=== PATIENT | female | born 1950 | race African-American/Black ===

== ENCOUNTER 2020-01-14 06:14 | Emergency (ER) | payer OTHER ==
[2020-01-14 07:25] LABS: ABSOLUTE BASOPHILS # (AUTO) 0.1 10^3/uL (0.0-0.2); ABSOLUTE EOSINOPHILS # (AUTO) 0.2 10^3/uL (0.0-0.6); ABSOLUTE LYMPHOCYTES (AUTO) 1.7 10^3/uL (0.5-4.7); ABSOLUTE MONOCYTES (AUTO) 0.3 10^3/uL (0.1-1.4); ABSOLUTE NEUT (AUTO) 3.7 10^3/uL (1.7-8.2); BASOPHILS % (AUTO) 1.2 % (0-2); EOSINOPHILS % (AUTO) 2.7 % (0-6); HEMATOCRIT 42.6 % (36.0-47.0); HEMOGLOBIN 14.2 g/dL (12.0-15.5); LYMPHOCYTES % (AUTO) 28.9 % (13-45); MEAN CORPUSCULAR HEMOGLOBIN 30.8 pg (27.0-33.4); MEAN CORPUSCULAR HGB CONC 33.2 g/dL (32.0-36.0); MEAN CORPUSCULAR VOLUME 93 fl (80-97); MONOCYTES % (AUTO) 4.6 % (3-13); PLATELET COUNT 278 10^3/uL (150-450); RED CELL DISTRIBUTION WIDTH 14.1 % (11.5-14.0); SEGMENTED NEUTROPHILS % (AUTO) 62.6 % (42-78); TOTAL CELLS COUNTED % (AUTO) 100 %; WHITE BLOOD COUNT 5.9 10^3/uL (4.0-10.5)
[2020-01-14 07:30] LABS: INTERNATIONAL RATION (INR) 0.87; PROTHROMBIN TIME 12.1 SEC (11.4-15.4)
[2020-01-14 07:40] LABS: ALBUMIN 4.4 g/dL (3.5-5.0); ALKALINE PHOSPHATASE 82 U/L (38-126); ANION GAP 9 (5-19); ASPARTATE AMINO TRANSFERASE 28 U/L (14-36); BILIRUBIN,DIRECT 0.2 mg/dL (0.0-0.4); BILIRUBIN,TOTAL 0.4 mg/dL (0.2-1.3); BLOOD UREA NITROGEN 15 mg/dL (7-20); CALCIUM 10.1 mg/dL (8.4-10.2); CARBON DIOXIDE 26 mmol/L (22-30); CHLORIDE 107 mmol/L (98-107); GLUCOSE 101 mg/dL (75-110); POTASSIUM 3.9 mmol/L (3.6-5.0); TOTAL PROTEIN 7.7 g/dL (6.3-8.2)
--- NOTE | 2020-01-14 11:09 | ER Document Report ---
ED ENT - General Chief Complaint: Nose Bleed Stated Complaint: NOSE BLEED, WEAKNESS, SHAKINESS Time Seen by Provider: 01/14/20 10:52 Primary Care Provider: SELWYN FLOWERS FNP-C [Primary Care Provider] - Follow up as needed UBALDO LEBRON MD [ACTIVE STAFF] - Follow up as needed Mode of Arrival: Ambulatory Information source: Patient Notes: 01/14/20 06:40 - ED Nursing Note by SIMRAN ALLEN Num: [id number] : 1950 Patient Age: [age] Y/O WITH NO MEDICAL HX, PRESENTS REPORTING THAT ABOUT 0530, SHE AWOKE TO A NOSE BLEED. PT REPORTED THAT IT BLEED HEAVILY FOR 5-10, THEN SLOWED. CURRENTLY STOPPED. PT NOW FEELS WEAK. DENIES THINNING AGENTS. B/P 158/98. BREATHING EASILY. 02 SAT 99% MY NOTES 69 year old female with recent history of epistaxis. Patient reports she awoke at 530 this morning with right-sided nosebleed that was quite heavy. She had had a nosebleed since she was a little girl when she lived in [place]. Patient moved here 50 years ago and has 5 children in [facility] and here all adult children from 39 to 49 years of age. She texted them because after 30 minutes of nosebleed and her bathroom and kitchen full of blood she went to the daily news holding pressure to her right nose with a cough. She spit out a large clump of blood at the daily news grassy area. She wanted to text her children in case some of them came to the house and saw a lot of blood in the house. She came to the ER around 615 and was triage. Her nosebleed stopped upon arrival. She did reports she took a aspirin around 5 hours prior to the nosebleed for mild arthralgias. Patient denies any trauma abuse cocaine use. Her labs are all perfect including a 14 hemoglobin. Patient in room is a good historian and reports she occasionally has rhinorrhea because of sinus problems after moving here 50 years ago. TRAVEL OUTSIDE OF THE [place] IN LAST 30 DAYS: No - HPI Patient complains to provider of: Nose problem Onset: This morning Onset/Duration: Sudden, Better Quality of pain: Achy Severity: Mild Pain Level: 1 - Related Data Allergies/Adverse Reactions: No Known Allergies Allergy (Unverified 03/21/14 14:14) Past Medical History - General Information source: Patient - Social History Smoking Status: Former Smoker Cigarette use (# per day): No Chew tobacco use (# tins/day): No Smoking Education Provided: No Frequency of alcohol use: None Drug Abuse: None Lives with: Family Family History: Reviewed & Not Pertinent Review of Systems - Review of Systems Constitutional: No symptoms reported EENT: See HPI, Nose congestion, Other - epistaxis Cardiovascular: No symptoms reported Respiratory: No symptoms reported Gastrointestinal: No symptoms reported Genitourinary: No symptoms reported Female Genitourinary: No symptoms reported Musculoskeletal: No symptoms reported Skin: No symptoms reported Hematologic/Lymphatic: No symptoms reported Neurological/Psychological: No symptoms reported Physical Exam - Vital signs Vitals: Temp Pulse Resp BP Pulse Ox 98.6 F 76 16 152/98 H 100 01/14/20 06:30 01/14/20 06:30 01/14/20 06:30 01/14/20 06:30 01/14/20 06:30 - General General appearance: Appears well, Alert - HEENT Head: Normocephalic, Atraumatic Eyes: Normal Conjunctiva: Normal Extraocular movements intact: Yes Eyelashes: Normal Pupils: PERRL Ears: Normal External canal: Normal Nasal: Epistaxis - right nostril dried blood; left serous Mucous membranes: Normal Pharynx: Normal Neck: Normal - Respiratory Respiratory status: No respiratory distress Chest status: Nontender Breath sounds: Normal Chest palpation: Normal - Cardiovascular Rhythm: Regular Heart sounds: Normal auscultation Murmur: No - Abdominal Inspection: Normal Distension: No distension Bowel sounds: Normal Tenderness: Nontender Organomegaly: No organomegaly - Rectal Hemorrhoids: Other - deferred - Genitourinary Bimanuel exam: Other - deferred - Back Back: Normal - Extremities General upper extremity: Normal inspection General lower extremity: Normal inspection - Neurological Neuro grossly intact: Yes Cognition: Normal Orientation: AAOx4 [place] Coma Scale Eye Opening: Spontaneous [place] Coma Scale Verbal: Oriented [place] Coma Scale Motor: Obeys Commands [place] Coma Scale Total: 15 Speech: Normal Motor strength normal: LUE, RUE, LLE, RLE Sensory: Normal - Psychological Associated symptoms: Normal affect - Skin Skin Temperature: Warm Skin Moisture: Dry Course - Vital Signs Vital signs: Temp Pulse Resp BP Pulse Ox 98.7 F 63 18 137/87 H 100 01/14/20 11:00 01/14/20 11:00 01/14/20 11:00 01/14/20 11:00 01/14/20 11:00 - Laboratory Result Diagrams: 01/14/20 07:00 01/14/20 07:00 Laboratory results interpreted by me: 01/14/20 07:00 RDW 14.1 H - Diagnostic Test Radiology reviewed: Reports reviewed - CT scan of facial bones were within normal limits except for sialolith of submandibular on the right. Critical Care Note - Critical Care Note Comments: I spoke with OR nurse Anna b/o Joel was in surgery; he agrees to see in office call for appointment Discharge - Discharge Clinical Impression: Epistaxis not due to trauma Condition: Good Disposition: HOME, SELF-CARE Additional Instructions: Follow-up with ENT Dr. Ubaldo Lebron call his office for appointment. Apply Bactroban to your nostrils gently at nighttime for 1 week. Try to avoid aspirin for 1 week at least. The aspirin will affect your platelets for 7 days. Please be aware this. Also return to ER if symptoms return or worsen. Try to apply pressure to right nostril and hold head forwards. Your blood count today on all labs were within normal limits actually you have a hemoglobin of 14 Prescriptions: Amoxicillin/Potassium Clav [Augmentin 875-125 Tablet] 1 tab PO BID #20 tab Mupirocin [Bactroban 2% Ointment 22 gm] 1 applic NASL HSP PRN #1 tube PRN Reason: Referrals: SELWYN FLOWERS, LASER ENGINEER-C [Primary Care Provider] - Follow up as needed UBALDO LEBRON MD [ACTIVE STAFF] - Follow up as needed
--- NOTE | 2020-01-14 12:12 | RADIOLOGY REPORT (SQ) ---
EXAM DESCRIPTION: CT FACIAL AREA WITHOUT IMAGES COMPLETED DATE/TIME: 01/14/2020 11:24 am REASON FOR STUDY: epistaxis r COMPARISON: None. TECHNIQUE: Noncontrasted images through the facial bones and orbits windowed for bone and soft tissu e. Additional coronal and sagittal reconstructed images reviewed. All images stored on PACS. All CT scanners at this facility use dose modulation, iterative reconstruction, and/or weight based d osing when appropriate to reduce radiation dose to as low as reasonably achievable (ALARA). [facility]: Dose Right [facility]: CareDose [facility]: Dose Right [facility]: Teradose 4D [facility]: Fundation RADIATION DOSE: CT Rad equipment meets quality standard of care and radiation dose reduction techniq ues were employed. CTDIvol: 30.4 mGy. DLP: 619 mGy-cm. mGy. LIMITATIONS: None. FINDINGS: FACIAL BONES: No fracture or bone lesion. ORBITS: Intact. No fracture. Symmetric intact globes and retroorbital soft tissues. PARANASAL SINUSES: Clear. No significant mucosal thickening, mass or fluid. No nasal polyps. Maxill edil sinus outlets are patent. SOFT TISSUES: No mass or edema. INFERIOR BRAIN: Limited view. No acute findings. OTHER: Incidental note is made of a right submandibular duct sialolith, and expanded sella demonstrat ing Hounsfield units consistent with CSF (no evidence of mass) and ankylosis of the cervical spine. IMPRESSION: No acute findings. Incidental findings include right submandibular duct sialolith, expa nded sella without evidence of sellar mass, and ankylosis of the cervical spine. TECHNICAL DOCUMENTATION: JOB ID: [id number] Quality ID # [id number]: Final reports with documentation of one or more dose reduction techniques (e.g., Au tomated exposure control, adjustment of the mA and/or kV according to patient size, use of iterative reconstruction technique) 2010 [employer]- All Rights Reserved Reading location - IP/workstation name: [email or web address]
[2020-01-14 12:39] VITALS: BP 138/91
[2020-01-14 13:14] LABS: APPEARANCE,URINE CLEAR; BILIRUBIN,URINE NEGATIVE (NEGATIVE); COLOR,URINE YELLOW; GLUCOSE, URINE NEGATIVE (NEGATIVE); KETONES,URINE NEGATIVE (NEGATIVE); PROTEIN,URINE 100 mg/dL (NEGATIVE); URINE SPECIFIC GRAVITY 1.018; UROBILINOGEN,URINE NEGATIVE mg/dL (<2.0)
== END 2020-01-14 12:43 | disposition home or self-care (01) ==
LOC: ER 06:14
DX: R04.0 Epistaxis (principal); R09.81 Nasal congestion; K11.5 Sialolithiasis; M43.22 Fusion of spine, cervical region; Z87.891 Personal history of nicotine dependence
CPT/HCPCS: 36415; 70486; 80053; 81001; 85025; 85610; 99284

== ENCOUNTER 2020-01-15 06:17 | Emergency (ER) | payer MEDICARE, OTHER ==
[2020-01-15] MEDS ORDERED: NORMAL SALINE 250 ML IV ONE (07:30)
[2020-01-15] MEDS ORDERED: CEFTRIAXONE INJ 1000 MG VIAL IV ONE (07:31)
[2020-01-15] MEDS ORDERED: METHYLPREDNISOLONE INJ 125 MG/2 ML SDV IV ONE (07:32)
[2020-01-15] MEDS ORDERED: CEFTRIAXONE 1 GM/D5W RTU 1 GM/50 ML RTUPB IV ONE (07:36)
[2020-01-15 08:16] LABS: ABSOLUTE EOSINOPHILS # (AUTO) 0.1 10^3/uL (0.0-0.6); ABSOLUTE LYMPHOCYTES (AUTO) 1.1 10^3/uL (0.5-4.7); ABSOLUTE MONOCYTES (AUTO) 0.2 10^3/uL (0.1-1.4); ABSOLUTE NEUT (AUTO) 3.2 10^3/uL (1.7-8.2); BASOPHILS % (AUTO) 0.9 % (0-2); HEMATOCRIT 39.8 % (36.0-47.0); HEMOGLOBIN 13.5 g/dL (12.0-15.5); LYMPHOCYTES % (AUTO) 23.6 % (13-45); MEAN CORPUSCULAR HEMOGLOBIN 31.3 pg (27.0-33.4); MEAN CORPUSCULAR VOLUME 92 fl (80-97); MONOCYTES % (AUTO) 5.3 % (3-13); PLATELET COUNT 248 10^3/uL (150-450); RED BLOOD COUNT 4.33 10^6/uL (3.72-5.28); RED CELL DISTRIBUTION WIDTH 14.1 % (11.5-14.0); SEGMENTED NEUTROPHILS % (AUTO) 68.2 % (42-78); TOTAL CELLS COUNTED % (AUTO) 100 %; WHITE BLOOD COUNT 4.7 10^3/uL (4.0-10.5)
[2020-01-15 08:31] LABS: ALBUMIN 4.2 g/dL (3.5-5.0); ALKALINE PHOSPHATASE 70 U/L (38-126); ANION GAP 5 (5-19); ASPARTATE AMINO TRANSFERASE 26 U/L (14-36); BILIRUBIN,DIRECT 0.2 mg/dL (0.0-0.4); BILIRUBIN,TOTAL 0.6 mg/dL (0.2-1.3); BLOOD UREA NITROGEN 15 mg/dL (7-20); CALCIUM 9.8 mg/dL (8.4-10.2); CARBON DIOXIDE 29 mmol/L (22-30); CHLORIDE 107 mmol/L (98-107); GLUCOSE 98 mg/dL (75-110); POTASSIUM 3.8 mmol/L (3.6-5.0); TOTAL PROTEIN 7.1 g/dL (6.3-8.2)
[2020-01-15 09:20] VITALS: BP 150/88
--- NOTE | 2020-01-15 09:26 | ER Document Report ---
Entered by XAVI BLANKENSHIP SCRIBE 01/15/20 0713 Acting as scribe for:JUNAID STYLES MD ED ENT - General Chief Complaint: Nose Bleed Stated Complaint: NOSE BLEED Primary Care Provider: SELWYN FLOWERS FNP-C [Primary Care Provider] - Follow up as needed Mode of Arrival: Ambulatory Information source: Patient Notes: This 69-year-old female patient presents to the emergency department today with complaints of a nosebleed. Patient was here yesterday for the same thing and was prescribed amoxicillin for sinusitis and was given bacitracin ointment to put in her nose. 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 Patient reports she got up this morning to go the bathroom and noticed that she felt her nose was running, she blew her nose and then it began bleeding. Patient states she felt lightheaded and weak prior to arrival. Patient is not on any blood thinning medications although she did take aspirin x2 days ago. Patient states she was told to call ENT which she did not do. TRAVEL OUTSIDE OF THE [place] IN LAST 30 DAYS: No - Related Data Allergies/Adverse Reactions: No Known Allergies Allergy (Unverified 03/21/14 14:14) Home Medications: ASA at times Past Medical History - General Information source: Patient - Social History Smoking Status: Former Smoker Cigarette use (# per day): No Chew tobacco use (# tins/day): No Frequency of alcohol use: Rare Drug Abuse: None Lives with: Family Family History: Reviewed & Not Pertinent - Medical History Medical History: Negative Surgical Hx: Negative Review of Systems - Review of Systems Constitutional: No symptoms reported EENT: See HPI, Other - nose bleed Cardiovascular: No symptoms reported Respiratory: No symptoms reported Gastrointestinal: No symptoms reported Genitourinary: No symptoms reported Female Genitourinary: No symptoms reported Musculoskeletal: No symptoms reported Skin: No symptoms reported Hematologic/Lymphatic: No symptoms reported Neurological/Psychological: No symptoms reported -: Yes All other systems reviewed and negative Physical Exam - Vital signs Vitals: Temp Pulse Resp BP Pulse Ox 97.3 F 94 12 183/119 H 99 01/15/20 06:23 01/15/20 06:23 01/15/20 06:23 01/15/20 06:23 01/15/20 06:23 - Notes Notes: Physical Exam: General: Alert, appears well. HEENT: Normocephalic. Atraumatic. PERRL. Extraocular movements intact. Oropharyn x clear. No active bleeding, turbinate edema bilaterally, there is dried blood in nares bilaterally. Right maxillary sinus tenderness to percussion. Neck: Supple. Non-tender. Respiratory: No respiratory distress. Clear and equal breath sounds bilaterally. Cardiovascular: Regular rate and rhythm. Abdominal: Obese. Non-tender. No distension. Normal Bowel Sounds. Back: No gross abnormalities. Extremities: Moves all four extremities. Upper extremities: Normal inspection. Normal ROM. Lower extremities: Normal inspection. No edema. Normal ROM. Neurological: Normal cognition. AAOx4. Normal speech. Psychological: Normal affect. Normal Mood. Skin: Warm. Dry. Normal color. Course - Re-evaluation Re-evalutation: 01/15/20 09:11 Patient had has had no active nasal bleed while in the department. - Vital Signs Vital signs: Temp Pulse Resp BP Pulse Ox 97.3 F 94 12 183/119 H 99 01/15/20 06:23 01/15/20 06:23 01/15/20 06:23 01/15/20 06:23 01/15/20 06:23 01/15/20 09:19 Repeat blood pressure 150/88. - Laboratory Result Diagrams: 01/15/20 07:50 01/15/20 07:50 Laboratory results interpreted by me: 01/15/20 07:50 RDW 14.1 H - Diagnostic Test Radiology reviewed: Image reviewed, Reports reviewed Radiology results interpreted by me: 01/15/20 09:20 Laboratories essentially within normal limits no acute process. Discharge - Discharge Clinical Impression: Epistaxis, Acute maxillary sinusitis Condition: Stable Disposition: HOME, SELF-CARE Additional Instructions: Nosebleed Instructions There is a significant chance of re-bleeding following a nosebleed. Proper care makes this less likely. Do not touch the nose for 24 hours. Do not blow the nose forcefully for one week. After 24 hours, gently apply Vaseline ointment to both nostrils with the tip of a finger, three times a day, for one week. It's normal to have a bloody mucous discharge for a few days. If active bleeding recurs, blow all the blood from the nose, then sit quietly and pinch the nose as firmly as possible for 10 minutes. If this does not stop the bleeding, return for further care. If packing was left in the nose and it starts to come out of the nostril, either tuck it back in or cut it off. Don't pull it out. Return for recheck and removal of the packing when instructed. Persons with frequent nosebleeds should avoid aspirin (unless prescribed for another reason). Humidity in the bedroom, and petroleum jelly applied to the nostrils at night may help. Prescriptions: Methylprednisolone [Medrol Dosepack (4 mg/Tab) 21 Tab/Dosepak] 4 mg PO ASDIR PRN #21 tab.ds.[id number] PRN Reason: Referrals: SELWYN FLOWERS, BIRD SITTER-C [Primary Care Provider] - Follow up as needed I personally performed the services described in the documentation, reviewed and edited the documentation which was dictated to the scribe in my presence, and it accurately records my words and actions.
== END 2020-01-15 09:36 | disposition home or self-care (01) ==
LOC: ER 06:17
DX: R04.0 Epistaxis (principal); J01.00 Acute maxillary sinusitis, unspecified
CPT/HCPCS: 99284; 96361; 96375; 96365; 36415; 85025; 80053; J2930; J7050; J0696